=== PATIENT | female | born 1980 | race Caucasian/White ===

== ENCOUNTER 2022-12-20 05:29 | Emergency (ER) | payer MEDICAID ==
[~2022-12-20] VITALS: Ht 152.4 cm; Wt 62.6 kg
[2022-12-20 05:30] VITALS: BP 130/73
--- NOTE | 2022-12-20 05:30 | NUR ---
to bed ambulatory
[2022-12-20] MEDS ORDERED: ONDANSETRON 4 MG/2 ML VIAL IVP ONE (05:45)
[2022-12-20] MEDS ORDERED: NACL 0.9% 1,000 ML IV ONE (05:45)
[2022-12-20] MEDS ORDERED: KETOROLAC 30 MG/ML VIAL IVP ONE (05:45)
[2022-12-20 06:15] LABS: BASOPHILS # (AUTO) 0.1 K/uL (0.00-0.22); EOSINOPHILS # (AUTO) 0.4 K/uL (0-0.4); EOSINOPHILS % (AUTO) 5.2 % (0.0-4.0); HEMATOCRIT 38.9 % (36-48); LYMPHOCYTES # (AUTO) 2.1 K/uL (2.5-16.5); LYMPHOCYTES % (AUTO) 27.6 % (20.5-51.1); MEAN CORPUSCULAR HEMOGLOBIN 27 pg (27-31); MEAN CORPUSCULAR HGB CONC 34 g/dL (33-37); MEAN CORPUSCULAR VOLUME 80.3 fL (80-94); MONOCYTES # (AUTO) 0.4 K/uL (0.8-1.0); MONOCYTES % (AUTO) 5.8 % (1.7-9.3); NEUTROPHILS # (AUTO) 4.6 K/uL (1.8-7.7); NEUTROPHILS % (AUTO) 60.4 % (42.2-75.2); PLATELET COUNT (AUTO) 234 K/uL (140-450); RED BLOOD CELL COUNT(AUTO) 4.84 MIL/uL (4.20-5.40); RED CELL DISTRIBUTION WIDTH 13.3 % (11.6-13.7); WHITE BLOOD COUNT (AUTO) 7.6 K/uL (4.8-10.8)
--- NOTE | 2022-12-20 06:17 | NUR ---
patient ambulatory to the bathroom with a steady gait
--- NOTE | 2022-12-20 06:27 | NUR ---
Dr. Laurent examining patient.
[2022-12-20 06:30] LABS: ALBUMIN 3.7 g/dL (3.4-5.0); ANION GAP 11.6 (8-16); CARBON DIOXIDE 26.7 mmol/L (21-32); CREATININE 0.7 mg/dL (0.6-1.3); POTASSIUM 3.3 mmol/L (3.5-5.1); TOTAL BILIRUBIN 0.5 mg/dL (0.0-1.0)
[2022-12-20 06:37] LABS: BILIRUBIN,URINE NEGATIVE (NEGATIVE); BLOOD, URINE NEGATIVE (NEGATIVE); COLOR,URINE YELLOW (YELLOW); LEUKOCYTE ESTERASE ,URINE TRACE (NEGATIVE); NITRITE, URINE NEGATIVE (NEGATIVE); UGLUCOSE NEGATIVE (NEGATIVE)
[2022-12-20 06:39] LABS: APPEARANCE,URINE CLOUDY (CLEAR)
[2022-12-20 06:56] LABS: RBC,URINE 0-5 /HPF (0-5)
--- NOTE | 2022-12-20 07:11 | NUR ---
Pt report given to Meredith WESLEY. Transfer of care at this time.
--- NOTE | 2022-12-20 07:12 | NUR ---
Report received from BIJAL Clarke for transfer of care.
--- NOTE | 2022-12-20 07:17 | NUR ---
Patient was taken to CT via [facility].
--- NOTE | 2022-12-20 07:32 | NUR ---
Patient returned from CT.
--- NOTE | 2022-12-20 08:16 | NUR ---
The patient's care was reviewed and supervised by MANAS RUIZ RN.
[2022-12-20] MEDS ORDERED: MORPHINE SULFATE 4 MG/ML SYR IVP ONE (09:20)
--- NOTE | 2022-12-20 10:20 | NUR ---
Patient is laying in bed, all needs met by staff.
[2022-12-20] MEDS ORDERED: CEPH-588 PO (10:49)
[2022-12-20] MEDS ORDERED: ONDA-188 SL (10:49)
[2022-12-20] MEDS ORDERED: IBUP-2213 PO (10:49)
[2022-12-20 11:05] VITALS: BP 125/76
--- NOTE | 2022-12-20 11:05 | NUR ---
Patient discharged with v/s stable. Written and verbal after care instructions given. Patient alert, oriented and verbalized understanding of instructions. Ambulatory with steady gait. All questions addressed prior to discharge. ID band removed. Patient advised to follow up with PMD. Rx of Keflex, Ibuprofen and Zofran given. Opportunity to ask questions provided and answered. COPY OF LABS, CT AND ULTRASOUND GIVEN TO PATIENT.
== END 2022-12-20 11:05 | disposition home or self-care (01) ==
LOC: MED 05:29
DX: K80.50 Calculus of bile duct without cholangitis or cholecystitis without obstruction (principal); R11.2 Nausea with vomiting, unspecified; N39.0 Urinary tract infection, site not specified; Z79.899 Other long term (current) drug therapy
CPT/HCPCS: 36415; 74177; 76705; 80053; 81001; 81025; 83605; 83690; 85025; 87040; 96361; 96374; 96375; 99285; J1885; J2270; J2405; Q0092; Q9967

== ENCOUNTER 2023-12-25 14:47 | Emergency (ER) | payer MEDICAID ==
[~2023-12-25] VITALS: Ht 154.9 cm; Wt 65.3 kg
[~2023-12-25 14:47] MED LIST: CEPH-588 PO; IBUP-2213 PO; ONDA-188 SL
[2023-12-25 14:50] VITALS: BP 129/81; PULSE 86; RESP 16; TEMP 97.3; O2SAT 98
[2023-12-25] MEDS: NACL 0.9% 1,000 ML IV SCH (15:18)
[2023-12-25] MEDS: ONDANSETRON 4 MG/2 ML VIAL IVP ONE (15:22)
[2023-12-25] MEDS: KETOROLAC 30 MG/ML VIAL IVP ONE (15:22)
[2023-12-25] MEDS: MORPHINE SULFATE 4 MG/ML SYR IVP ONE (15:23)
[2023-12-25 15:41] LABS: BASOPHILS # (AUTO) 0.1 K/uL (0.00-0.22); BASOPHILS % (AUTO) 0.8 % (0.0-2.0); EOSINOPHILS % (AUTO) 0.3 % (0.0-4.0); HEMATOCRIT 39.8 % (36-48); HEMOGLOBIN 13.3 g/dL (12.0-16.0); LYMPHOCYTES # (AUTO) 1.3 K/uL (2.5-16.5); MEAN CORPUSCULAR HEMOGLOBIN 27 pg (27-31); MEAN CORPUSCULAR HGB CONC 33 g/dL (33-37); MEAN CORPUSCULAR VOLUME 80.6 fL (80-94); MONOCYTES # (AUTO) 0.4 K/uL (0.8-1.0); MONOCYTES % (AUTO) 3.2 % (1.7-9.3); NEUTROPHILS # (AUTO) 11.6 K/uL (1.8-7.7); NEUTROPHILS % (AUTO) 85.9 % (42.2-75.2); PLATELET COUNT (AUTO) 286 K/uL (140-450); RED BLOOD CELL COUNT(AUTO) 4.93 MIL/uL (4.20-5.40); RED CELL DISTRIBUTION WIDTH 13.3 % (11.6-13.7); WHITE BLOOD COUNT (AUTO) 13.5 K/uL (4.8-10.8)
[2023-12-25 15:57] LABS: ANION GAP 13.3 (8-16); CALCIUM 8.6 mg/dL (8.5-10.1); CARBON DIOXIDE 28.4 mmol/L (21-32); CREATININE 0.6 mg/dL (0.6-1.3); POTASSIUM 3.7 mmol/L (3.5-5.1)
[2023-12-25 15:59] LABS: LYMPHOCYTES % (AUTO) 9.8 % (20.5-51.1)
[2023-12-25 16:12] LABS: ALBUMIN 3.9 g/dL (3.4-5.0); BILIRUBIN,DIRECT 0.1 mg/dL (0.0-0.3); TOTAL BILIRUBIN 0.8 mg/dL (0.0-1.0); TOTAL PROTEIN, SERUM 7.8 g/dL (6.4-8.2)
[2023-12-25] MEDS ORDERED: IBUP-2213 PO (17:10)
[2023-12-25] MEDS ORDERED: ONDA-188 SL (17:10)
[2023-12-25 17:22] VITALS: BP 129/81; PULSE 86; RESP 16; TEMP 97.3; O2SAT 98
== END 2023-12-25 17:22 | disposition home or self-care (01) ==
LOC: MED 14:47
DX: R10.11 Right upper quadrant pain (principal); R11.2 Nausea with vomiting, unspecified; Z79.899 Other long term (current) drug therapy
CPT/HCPCS: 36415; 76705; 80048; 80076; 81025; 83690; 85025; 96361; 96374; 96375; 99285; J1885; J2270; J2405; J7030; Q0092